=== PATIENT | male | born 1970 | race Caucasian/White ===

== ENCOUNTER 2016-08-31 21:47 | Observation (INO) | payer BC ==
[2016-08-31 22:33] LABS: Hematocrit 38.6 % (42.0-52.0); Hemoglobin 13.9 gm/dL (13.5-18.0); Mean Cell Volume 98.7 fl (78-100); Mean Corpuscular Hemoglobin 35.5 pg (27-31); Mean Platelet Volume 8.5 fl (6.0-9.5); Neutrophil # 12.4 K/mm3 (1.3-6.0); Neutrophil % 73.3 % (42-75.0); Platelet Count 100 K/mm3 (150-450); Red Blood Count 3.91 M/mm3 (4.7-6.0); Red Cell Distribution Width 14.6 % (11.5-14.0)
[2016-08-31 22:34] LABS: Total Cells Counted 100
--- NOTE | 2016-08-31 22:36 | ERNOTE ---
Medical Problem HPI - General Chief Complaint: General Assessment Time Seen by Provider: 08/31/16 22:27 Source: family Exam Limitations: clinical condition - Immun/Allergies/Home Medications Immunizations: IMMUNIZATION HX Immunizations Up to Date Yes History of Influenza Vaccine No Hx Pneumococcal Vaccination No Allergies/Adverse Reactions: Allergies No Known Allergies Allergy (Verified 08/31/16 23:02) Home Medications: HOME MEDICATIONS Multivitamin [Poly-Vitamin] 1 each PO DAILY 08/03/15 [Last Taken Unknown] Folic Acid 1 mg PO DAILY #30 tablet 08/05/15 [Last Taken Unknown] Levothyroxine Sodium [Synthroid] 88 mcg PO DAILY@0700 #30 tablet 08/05/15 [Last Taken Unknown] Magnesium Oxide [Mag-Ox 400] 400 mg PO QID #120 tablet 08/05/15 [Last Taken Unknown] Thiamine HCl [Vitamin B-1] 100 mg PO DAILY #30 tablet 08/05/15 [Last Taken Unknown] Famotidine [Pepcid AC] 20 mg PO DAILY 08/31/16 [Last Taken Unknown] Furosemide [Lasix] 20 mg PO Q48H 08/31/16 [Last Taken Unknown] Lactulose [Enulose] 45 ml PO BID 08/31/16 [Last Taken Unknown] - History of Present History Narrative: Parents found pt confused, has cirrhosis of the liver and may not have taken his meds today. Was tired last night when he talked to his dad on the phone but otherwise sounded normal. Today father went to check on him and found him nearly unresponsive Timing: getting worse Severity: moderate Review of Systems - Narrative Narrative: Pt does not give clear answers, mumbles and incoherent speech. - Patient's Past Medical History Patient History - Medical: Liver Disease Patient History - Cardiac/Respiratory: No pertinent hx Patient History - Cancer: No Hx of Cancer Patient History - Surgical Procedures: T & A Patient History - Other: None - Family History Brother Family History - Medical: Hypothyroidism mom Family History - Medical: Hypothyroidism dad Family History - Medical: GERD Family History - Cardiac/Respiratory: Hypertension, Hyperlipidemia - Social History Living Situations: home Abuse History: Hx of Substance Use Psych History: No pertinent hx Smoking Status: Former smoker Alcohol Use: sober Drug Use: none - Immunizations Immunizations Up to Date: Yes Hx Pneumococcal Vaccination: No History of Influenza Vaccine: No Physical Exam - Physical Exam General Appearance: Present: wd/wn, lethargic Eye Exam: Other: bilateral - Unablel to get patient to open his eyes for me due to his confusion Ears, Nose, Throat: Present: normal ENT inspection Neck: Present: normal inspection, nontender Respiratory: Present: no respiratory distress, normal breath sounds, no accessory muscle use, chest nontender, lungs clear Cardiovascular/Chest: Present: regular rate, rhythm, no murmur, normal peripheral pulses Gastrointestinal/Abdominal: Present: nontender, nondistended, soft Male Genitals Exam: Present: normal genitalia Back Exam: Present: normal inspection, normal range of motion Extremity Exam: Present: normal inspection, normal range of motion, no edema Neurological Exam: Present: no motor/sensory deficits, disoriented to person, disoriented to time, disoriented to place, disoriented to situation Skin Exam: Present: normal color, warm/dry Lymphatic Exam: Present: no adenopathy ED Progress - Results and Orders Patient's Lab Results:: I have reviewed the patient's lab results. Results and Orders: Laboratory Tests 08/31/16 08/31/16 08/31/16 22:12 22:12 22:12 WBC 17.0 H Hgb 13.9 Hct 38.6 L Plt Count 100 L Sodium 146 H Potassium 4.1 Chloride 109 H Carbon Dioxide 19.7 L Anion Gap 21.4 H BUN 25 H D Creatinine 1.18 Est GFR (Non-Af Amer) 71 Random Glucose 117 H Calcium 9.5 Total Bilirubin 1.9 H AST 207 H ALT 67 Alkaline Phosphatase 166 Ammonia 61.0 H Total Protein 7.9 Albumin 3.8 - Vital Signs Patient's Vital Signs:: I have reviewed the patient's vital signs. Vital Signs: Vital Signs 08/31/16 21:55 Temperature 37.2 C Pulse Rate 117 H Respiratory 16 Rate Blood Pressure 155/79 O2 Sat by Pulse 98 Oximetry - Progress/Reassessment Chief Complaint: General Assessment Progress:: Unchanged Progress Note-Subjective: 09/01/16 00:59 spoke with Neisha SHELTON hospitalist, she agrees to admit the patient 09/01/16 02:21 Around 01:45 pt began to be very agitated and tried to crawl out of bed. Pt was not coherent nor stable on his feet. We encouraged pt back into the bed but he continued to be restless and tried to get back up and was trying to hit and bite the staff. Pt was physically restrained by staff at this point and given 1 mg ativan IV. The IV began leaking immediately after the ativan was given and we could not confirm if he received the ativan or not. Pt was wanting to urinate but we could not get him to understand that we had a urinal at the ready and he could just urinate. 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 I eventually was able to get his fingers open and he did urinate a small amount on the floor but then quickly stopped. The patient settled down after approx 7-10 minutes after we attempted to give ativan we could not be sure if it was effects of getting ativan or not. Pt was taken to the SCU by ER staff and was somewhat restless but not agitated. Departure - Departure Clinical Impression: Hepatic encephalopathy Cirrhosis of liver Qualifiers: Hepatic cirrhosis type: unspecified biliary cirrhosis Qualified Code(s): K74.5 - Biliary cirrhosis, unspecified Disposition: [facility] Condition: Serious
--- OUTSIDE RECORDS SUMMARY | 2016-08-31 22:38 | XMS REPORT | Continuity of Care Document ---
:1970 Author Organization [facility] ([facility]) Address [address] [place] [address] Phone [phone] Care Team Providers Name Role Phone Vesta Martinez Primary Care Provider [phone] Source Comments This disclosure is being made pursuant to the Care Everywhere program, applicable federal and state laws, and may not contain all informaitonavailable regarding this patient.[facility] ([facility]) Active Allergies and Adverse Reactions No Known Allergies Current Medications Prescription Sig. Disp. Refills Start Date End Date Status folic acid 1 mg Take 1 mg by Active tablet mouth daily. levothyroxine 88 mcg Take 88 mcg by Active tablet mouth every morning before breakfast. famotidine 20 mg Take 1 tablet 60 tablet 11 09/09/2015 Active tablet (20 mg total) by mouth 2 times daily. magnesium oxide 400 Take 1 tablet 30 tablet 11 09/09/2015 Active mg tablet (400 mg total) by mouth daily. lactulose 10 g/15 mL Take 45 mL (30 946 mL 11 02/03/2016 Active solution g total) by mouth 2 times daily. Titrate dose to 2-3 bowel movements per day. cyanocobalamin Take 1 tablet Active (VITAMIN B-12) PO by mouth daily. spironolactone 50 mg Take 1 tablet 30 tablet 3 02/18/2016 Active tablet (50 mg total) by mouth daily. ciprofloxacin HCl Take 1 tablet 30 tablet 11 08/21/2015 Discontinued 500 mg tablet (500 mg total) 7 by mouth daily. POTASSIUM Take 90 mg by Discontinued (POTASSIMIN PO) mouth daily. 7 furosemide 20 mg Take 1 tablet 30 tablet 2 03/04/2016 Discontinued tablet (20 mg total) 7 by mouth every 48 hours. Active Problems Problem Noted Date Alcoholic cirrhosis of liver without ascites 06/20/2016 Anasarca 03/03/2016 S/P TIPS (transjugular intrahepatic portosystemic shunt) 02/03/2016 Alcoholic cirrhosis of liver with ascites 02/02/2016 Delirium 09/08/2015 Hepatic encephalopathy 09/03/2015 MARIE (acute kidney injury) 09/03/2015 Decompensated hepatic cirrhosis 09/03/2015 Lethargy 09/01/2015 Alcohol abuse 08/21/2015 Thrombocytopenia 08/21/2015 Hypothyroidism 08/19/2015 Cirrhosis 08/18/2015 Ascites 08/18/2015 Most Recent Encounters Date Type Specialty Providers Description 08/12/2016 Committee Review Transplant Angelica Graff, CIARRA ADAN 08/11/2016 Telephone Transplant Elis Cabrera Chief Comp: Follow-up CIARRA Frank 08/10/2016 Office Visit Med GI/Hepatology Default, Other Chief Comp: Patient Billg - Defo Reported Reason For Dianna Rosario Visit MD 08/10/2016 Office Visit Med GI/Hepatology Default, Other Dx: Alcoholic Billg - Defo cirrhosis of liver Mazin Butler, without ascites (Primary Dx) Dianna Rosario MD 07/28/2016 Office Visit Radiology Sg Marie Dx: S/P STELLA Sutherland MD (transjugular intrahepatic portosystemic shunt) (Primary Dx) 07/28/2016 [facility] [place] Chief Comp: Patient Donna Byrne MD Reported Reason For Visit 07/25/2016 Telephone Surgery Specialty Juana Jeronimo Chief Comp: Other 07/18/2016 Telephone Transplant Juana Jeronimo Chief Comp: Other EDUAR/MITCH 07/18/2016 Orders Only Transplant Brooks Chatterjee Dx: Alcohol abuse CIARRA Grier MD (Primary Dx) 07/07/2016 Telephone Transplant Juana Jeronimo Chief Comp: Other TOMASZ/CLAU 07/07/2016 Orders Only Transplant Brooks Chatterjee Dx: Alcohol abuse CIARRA Grier MD (Primary Dx) 06/28/2016 Office Visit Transplant Tashia Cordova Dx: Substance use CIARRA PHD disorder (Primary Dx) 06/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 Telephone Transplant Juana Jeronimo 06/23/2016 Refill Med GI/Hepatology Kell Graff Dx: Other ascites (Primary Dx) 06/20/2016 Telephone Transplant Juana Jeronimo Chief Comp: Other CIARRA 06/17/2016 Telephone Transplant Juana Jeronimo 06/17/2016 Orders Only Transplant KandaceJuana 06/17/2016 Orders Only Transplant Brooks Chatterjee Dx: Alcohol abuse CIARRA Grier MD (Primary Dx) 06/16/2016 Committee Review Transplant Angelica Graff, CIARRA ADAN 06/09/2016 Telephone Transplant Juana Jeronimo Chief Comp: Other CIARRA 06/09/2016 Orders Only Transplant Karan Sarmiento, Dx: Alcohol abuse CAIRRA MAYER (Primary Dx) Immunizations Name Dates Previously Given Next Due Hepatitis A, adult 06/21/2016 Hepatitis B, adult 06/21/2016 Pneumococcal Conjugate, PCV13 (Prevnar 13) 06/21/2016 Pneumococcal Polysaccharide, PPSV23 (Pneumovax 23) 02/03/2016 Tdap 06/21/2016 Social History Tobacco Use Types Packs/Day Years Used Date Former Smoker Cigarettes 1 20 Quit: 08/15/2015 Smokeless Tobacco: Never Used Tobacco Cessation:Counseling Given: Yes Comments: Alcohol Use Drinks/Week oz/Week Comments No 0 Standard drinks or equivalent 0.0 Previous alcoholic (12pack/night) and fifth of liquor a week for 2 years. Last drink was 07/27/15. Last Filed Vital Signs Vital Sign Reading Time Taken Blood Pressure 151/82 08/10/2016 2:02 PM [employer]AL [employer] Pulse 74 08/10/2016 2:02 PM [employer] Temperature 37.3 C (99.1 F) 08/10/2016 2:02 PM [employer] Respiratory Rate 20 07/28/2016 1:51 PM [employer] Height 1.778 m (5' 10") 08/10/2016 2:02 PM [employer] Weight 98.8 kg (217 lb 13 oz) 08/10/2016 2:02 PM [employer] Body Mass Index 31.25 08/10/2016 2:02 PM [employer] Oxygen Saturation 100% 03/04/2016 10:07 AM CDT Plan of Care Date Type Specialty Providers Description 10/26/2016 Appointment Radiology Chief Comp: Patient Reported Reason For Visit Health Maintenance Due Date Last Done Comments Lipid Disorder Screening 12/27/1989 MMR Vaccine 12/27/1989 Influenza Vaccine: Seasonal (#1) 01/11/2016 Hepatitis B Vaccine (2 of 3 - Primary 07/19/2016 06/21/2016 Series) Td Vaccine 06/21/2026 06/21/2016 Pneumococcal Vaccine Completed 06/21/2016, 02/03/2016 Tdap Vaccine Completed 06/21/2016 Results from Last 3 Months ALPHA-FETOPROTEIN (08/10/2016 1:57 PM) Component Value Range AFP 4.1 0.0-9.0 ng/mL Specimen Blood PT/INR (PROTHROMBIN TIME/INR) VENOUS (08/10/2016 1:57 PM) Component Value Range PT (Prothrombin Time) 12 9-12 secs INR 1.2 <4.0 Specimen Blood BASIC METABOLIC PANEL W/ CALCIUM (CHEM 8) (08/10/2016 1:57 PM) Component Value Range Sodium 141 135-145 mEq/L Potassium 4.0 3.5-5.0 mEq/L Chloride 105 95-107 mEq/L CO2 24 22-29 mEq/L Anion Gap 12 8-18 mEq/L BUN 18 10-20 mg/dL Creatinine 1.0Comment: 0.6-1.2 mg/dL Creatinine switched to enzymatic method on 10/19/2010.GFR equation switched to IDMS-traceable MDRD equation on 10/19/2010. Calculated GFR values are not valid in clinical settings where serum creatinine is changing. Glucose 109(H)Comment: 65-99 mg/dL The Expert Committee on the Diagnosis and Classification of Diabetes has defined impaired fasting glucose as greater than or equal to 100 mg/dL but less than 126 mg/dL.(Diabetes Care 28 (Suppl 1)S41,2005) Calcium 9.1 8.5-10.5 mg/dL Calculated GFR 81 >60 mL/min/1.73 m2 Specimen Blood CBC (COMPLETE BLOOD COUNT) (08/10/2016 1:57 PM) Component Value Range WBC Count 8.0 3.7-10.5 K/MM3 RBC Count 3.33(L) 4.50-6.20 M/MM3 Hemoglobin 11.7(L) 13.2-17.7 g/dL Hematocrit 32(L) 40-52 % MCV (Mean Corpuscular Volume) 96 82-99 FL MCH (Mean Corpuscular Hemoglobin) 35 25-35 PG MCHC (Mean Corpuscular Hemoglobin Concentration) 36 32-36 % Platelet Count 92(L) 150-400 K/MM3 MPV (Mean Platelet Volume) 8.4(L) 9.4-12.3 FL RBC Dist Width-STD 50.4(H) 35.1-43.9 FL RBC Distrib Width 14.4 9.0-14.5 % Nucleated RBC 0 /100 WBC Specimen Whole Blood HEPATIC FUNCTION PANEL (08/10/2016 1:57 PM) Component Value Range Albumin 3.7 3.4-4.8 g/dL ALP 147(H) 40-129 U/L Bilirubin Total 1.2 <=1.2 mg/dL Bilirubin, Direct 0.3(H) 0.0-0.2 mg/dL AST 44(H)Comment: 0-40 U/L Adult reference ranges updated on 05/07/13 at 830am ALT 26Comment: 0-41 U/L The upper limit of normal for alanine aminotransferase (ALT) reference ranges for adults is controversial with some authorities recommending limit as low as 30 U/L for males and 19 U/L for females. Th ere is increased incidence of subclinical liver disease (e.g., early steatohepatitis) in patients with ALT values in the range of 31-41 U/L for males and 20-33 U/L for females. ALT values should alway s be interpreted in conjunction with clinical history, physical examination findings, and, if applicable, data from other diagnostic tests. Total Protein 7.0 6.0-8.0 g/dL Specimen Blood US TRISTIN/SYSTEMIC SHUNT DOPP (73017) (07/28/2016 1:38 PM) Impressions Impression: 1. Patent normally functioning TIPS. 2. Diffuse fibrofatty infiltration of the liver. No focal lesions. 3. No splenomegaly. No ascites. --- Final --- Narrative [facility] Department of Radiology Ultrasound Division [address] [place] [address] ULTRASOUND REPORT NAME:MONY KENNEDY Date of Service: 07/28/2016 MRN NO.: [id number] Review Date: 07/28/2016 Patient's : 1970Resident/Tech: [email or web address] Anu Talavera Patient's Age: 45 years Referring MD:SG MARIE Indication: please assess TIPS patency, TIPS completed on 02.02.16 Cirrhosis of liver with ascites, unspecified hepatic cirrhosis type [K74.60]. Technique: Grayscale limited abdominal ultrasound with spectral Doppler analysis of the TIPS shunt. Findings: Liver: The liver shows changes consistent with cirrhosis. Liver measures 14.8 cm in length. There is no ascites. +---------+---------+ + +---------+ +------+------ + : MPV : Caudal: Mid: Cephalic : HV:RPV: LPV:UV : +---------+---------+ + +---------+ +------+------ + :31.0 cm/s:88.0 cm/s:135.0 cm/s:118.0 cm/s:97.0 cm/s:Hepatofugal:To-Fro:Absent: +---------+---------+ + +---------+ +------+------ + Spleen: Spleen measures 12.8 cm. Procedure Note Ousmane, Incoming Imaging Results - Marleen Jul 28, 2016 2:52 PM [employer] [employer] Department of Radiology Ultrasound Division [address] [place] [address] ULTRASOUND REPORT NAME: MONY KENNEDY Date of Service: 07/28/2016 MRN NO.: [id number] Review Date: 07/28/2016 Patient's : 1970 Resident/Tech: wShaun Talavera Patient's Age: 45 years Referring MD: SG T LAROIA Indication: please assess TIPS patency, TIPS completed on 02.02.16 Cirrhosis of liver with ascites, unspecified hepatic cirrhosis type[K74.60]. Technique: Grayscale limited abdominal ultrasound with spectral Doppler analysis of the TIPS shunt. Findings: Liver: The liver shows changes consistent with cirrhosis. Liver measures 14.8 cmin length. There is no ascites. +---------+---------+ + +---------+ +------+------ + : MPV : Caudal : Mid : Cephalic : HV : RPV : LPV :UV : +---------+---------+ + +---------+ +------+------ + :31.0 cm/s:88.0 cm/s:135.0 cm/s:118.0 cm/s:97.0 cm/s:Hepatofugal:To-Fro:Absent: +---------+---------+ + +---------+ +------+------ + Spleen: Spleen measures 12.8 cm. IMPRESSION Impression: 1. Patent normally functioning TIPS. 2. Diffuse fibrofatty infiltration of the liver. No focal lesions. 3. No splenomegaly. No ascites. --- Final --- EXTERNAL THC-URINE (07/18/2016)Only the most recent of4 resultswithin the time period is included. Component Value Range Ext THC, Urine Neg NEG EXTERNAL ETHYL GLUCURONIDE SCREEN,URINE (07/18/2016)Only the most recent of4 resultswithin the time period is included. Component Value Range Ext Ethyl Glucuronide Screen, Urine Neg EXTERNAL DRUGS OF ABUSE - URINE (07/18/2016)Only the most recent of4 resultswithin the time period is included. Component Value Range Ext Amphetamines, Urine Neg NEG Ext Barbiturates, Urine Neg NEG Ext Benzodiazepine, Urine Neg NEG Ext Cocaine, Urine Neg NEG Ext Opiate, Urine Neg NEG Ext THC, Urine Neg NEG
[2016-08-31 22:46] LABS: Albumin * 3.8 gm/dl (3.4-5.0); Anion Gap 21.4 mmol/L (6.8-13.8); BUN/Creatinine Ratio 21.2 (9.0-21.6); Bilirubin, Total 1.9 mg/dL (0.0-1.1); Ca. Corrected For Albumin 9.3 mg/dL (8.4-10.2); Calcium * 9.5 mg/dL (7.9-10.9); Carbon Dioxide 19.7 mmol/L (24-32.6); Potassium 4.1 mmol/L (3.4-4.6); Total Protein 7.9 gm/dL (6.2-8.2)
[2016-08-31 22:56] LABS: Band 3 % (0-2.0); Eosinophil 2 % (0-3); Lymphocyte 10 % (20-51); Monocyte 9 % (0-9); Neutrophil 76 % (42-75); Neutrophil # 12.9 K/mm3 (1.3-6.0); Platelet Estimate Decreased (NORMAL); RBC Morphology Normal (NORMAL)
[2016-09-01] MEDS ORDERED: NORMAL SALINE 1,000 ML IV ONE (00:19)
--- OUTSIDE RECORDS SUMMARY | 2016-09-01 01:10 | XMS REPORT | Continuity of Care Document ---
:1970 Author Organization [facility] ([facility]) Address [address] [place] [address] Phone [phone] Care Team Providers Name Role Phone Vesta Martinez Primary Care Provider [phone] Source Comments This disclosure is being made pursuant to the Care Everywhere program, applicable federal and state laws, and may not contain all informaitonavailable regarding this patient.[facility] ([facility]) Active Allergies and Adverse Reactions No [...] shunt) (Primary Dx) 07/28/2016 [facility] [place] Chief Comp: Patient Donna Byrne MD Reported [...] Only Transplant Karan Sarmiento, Dx: Alcohol abuse CIARRA MAYER (Primary Dx) Immunizations Name Dates Previously [...] Taken Blood Pressure 151/82 08/10/2016 2:02 PM 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 Patent normally functioning TIPS. 2. Diffuse fibrofatty infiltration of the liver. No focal lesions. 3. No splenomegaly. No ascites. --- Final --- Narrative [facility] Department of Radiology Ultrasound Division [address] [place] [address] ULTRASOUND REPORT NAME:MONY KENNEDY Date of Service: 07/28/2016 MRN NO.: [id number] Review Date: 07/28/2016 Patient's : 1970Resident/Tech: [email or web address] [...] - Marleen Jul 28, 2016 2:52 PM W[employer] SYSTEM[employer] ENGINEER [facility] Department of Radiology Ultrasound Division [place] [address] ULTRASOUND REPORT NAME: MONY KENNEDY Date of Service: 07/28/2016 MRN NO.: [id number] Review Date: 07/28/2016 Patient's : 1970 Resident/Tech: [...]
[2016-09-01] MEDS ORDERED: LORazepam 2 MG/ML DISP.SYRIN IV ONE (01:53)
[2016-09-01] MEDS ORDERED: LORazepam 2 MG/ML DISP.SYRIN ONE (01:53)
[2016-09-01] MEDS ORDERED: FUROSEMIDE 20 MG TABLET PO SCH (03:15)
[2016-09-01] MEDS ORDERED: LACTULOSE 10 G/15 ML BTL PO SCH ×2 (03:15→09:00)
--- NOTE | 2016-09-01 03:23 | HP ---
Chief Complaint - Chief Complaint Date of Service: 09/01/16 Time of Service: 03:18 Chief Complaint: ' Confusion, not making sense in words'. Source of HPI- Pt; unreliable due to AMS. ER provider report, pt's mother, Shabnam. History of Present Illness: Mr. Kennedy is a 45-year-old WM pt of Dr. Vesta Martinez with a PMH of: Alcoholism, Alcoholic Cirrhosis of the Liver with Ascites, Anxiety disorder. History of illness is unobtainable from the patient due to cognitive function impairment. I reached the patient's mother, Shabnam by phone and she provided most of the information. She states that patient has been doing well since 05/2016 with his alcoholism. He has been following up with the farm equipment mechanic apprentice at the [facility] and states that he has been compliant with the treatment regiment for his alcoholic hepatitis & Liver cirrhosis. She states that the doctor was pleased with his improvement with alcoholism and that he would not need liver transplant. Shabnam states that the patient has been able to keep his employment for the last 2 years. They always call on check on him every night. The night before, the patient complained of feeling tired. He was supposed to file for taxes with the help of his parents today. However, he did not show up. They tried to call him numerous times and he could not answer. Both parents drove over to his house. They found him wandering naked in his home and he was not making any sense with his conversation. Shabnam states that they wanted to bring him to the Hospital and pt fought them, and refused to put on his clothes. They called the EMS to provide assistance, but by the time the arrived , they had been able to get him on to the personal car to bring him to the [facility] ER. Shabnam reports that she is uncertain if the pt has been taking his medication , more so the Lactulose. During evaluation at the ED, he became agitated, restless and kept trying to make numerous attempts to get out of bed. Pt remained incoherent and had unstable gait. He required IV Ativan to calm his aggressive behaviour. At the time of physical examination, he remains in a drowsy state. His lab work showed WBC of 17,000 on CBC and his ammonia level was 61. He will be admitted inpatient due to signs of Hepatic Encephalopathy. . - Patient's Past Medical History Patient History - Medical: Liver Disease, Other - Alcoholism, Alcoholic Cirrhosis of the Liver with Ascites, Anxiety disorder. Patient History - Cardiac/Respiratory: No pertinent hx Patient History - Cancer: No Hx of Cancer Patient History - Surgical Procedures: T & A Patient History - Other: None - Family History Brother Family History - Medical: Hypothyroidism mom Family History - Medical: Hypothyroidism dad Family History - Medical: GERD Family History - Cardiac/Respiratory: Hypertension, Hyperlipidemia - Social History Living Situations: home Abuse History: Hx of Substance Use Psych History: No pertinent hx Smoking Status: Former smoker Have you smoked in the past 12 months: No Alcohol Use: sober Drug Use: none - Immunizations Immunizations Up to Date: Yes Hx Pneumococcal Vaccination: No History of Influenza Vaccine: No Review Of Systems (GEN) - Review of Systems Additional Comments: ROS unobtainable due to AMS. Immunizations: IMMUNIZATION HX Immunizations Up to Date Yes History of Influenza Vaccine No Hx Pneumococcal Vaccination No Allergies/Adverse Reactions: Allergies Allergy/AdvReac Type Severity Reaction Status Date / Time No Known Allergies Allergy Verified 08/31/16 23:02 Home Medications: HOME MEDICATIONS Multivitamin [Poly-Vitamin] 1 each PO DAILY 08/03/15 [Last Taken Unknown] Folic Acid 1 mg PO DAILY #30 tablet 08/05/15 [Last Taken Unknown] Levothyroxine Sodium [Synthroid] 88 mcg PO DAILY@0700 #30 tablet 08/05/15 [Last Taken Unknown] Magnesium Oxide [Mag-Ox 400] 400 mg PO QID #120 tablet 08/05/15 [Last Taken Unknown] Thiamine HCl [Vitamin B-1] 100 mg PO DAILY #30 tablet 08/05/15 [Last Taken Unknown] Famotidine [Pepcid AC] 20 mg PO DAILY 08/31/16 [Last Taken Unknown] Furosemide [Lasix] 20 mg PO Q48H 08/31/16 [Last Taken Unknown] Lactulose [Enulose] 45 ml PO BID 08/31/16 [Last Taken Unknown] Exam - Exam Vital Signs: Vital Signs - Last Taken Temp 36.7 C 09/01/16 02:23 Pulse 108 H 09/01/16 03:08 Resp 20 09/01/16 02:23 BP 167/88 09/01/16 02:23 Pulse Ox 98 09/01/16 02:23 Constitutional: Present: No distress, Obtunded ENT Exam: Present: dry mucous membranes Eye Exam: bilateral eye: normal inspection, PERRL Neck: Present: full range of motion, supple, normal inspection Back Exam: Present: normal inspection Breasts: Present: Exam deferred Respiratory: Present: lungs clear, no accessory muscle use, No wheezing Cardiovascular/Chest: Present: normal peripheral pulses, regular rate, rhythm, no chest tenderness, no edema, no murmur Abdomen: Present: Normal bowel sounds, soft, nontender /Rectal: Present: Exam deferred Extremity: Present: normal range of motion, non-tender, normal inspection, no pedal edema Skin Exam: Present: warm/dry, no cyanosis Lymphatic: Present: no adenopathy Neurologic: Present: other - Drowsy Appearance: Present: impaired insight Eye contact: Present: uncooperative Thoughts: Present: incoherent Diagnostic Studies: Laboratory Results WBC 17.0 K/mm3 (4.0-10.5) H 08/31/16 22:12 RBC 3.91 M/mm3 (4.7-6.0) L 08/31/16 22:12 Hgb 13.9 gm/dL (13.5-18.0) 08/31/16 22:12 Hct 38.6 % (42.0-52.0) L 08/31/16 22:12 MCV 98.7 fl (78-100) 08/31/16 22:12 MCH 35.5 pg (27-31) H 08/31/16 22:12 MCHC 36.0 g/dl (32-36) 08/31/16 22:12 RDW 14.6 % (11.5-14.0) H 08/31/16 22:12 Plt Count 100 K/mm3 (150-450) L 08/31/16 22:12 MPV 8.5 fl (6.0-9.5) 08/31/16 22:12 Immature Gran % (Auto) 0.40 % (0.001-0.429) 08/31/16 22:12 Immature Gran # (Auto) 0.07 K/mm3 (0.000-0.0310) H 08/31/16 22:12 Neutrophils % 73.3 % (42-75.0) 08/31/16 22:12 Neutrophils % (Manual) 76 % (42-75) H 08/31/16 22:12 Band Neuts % (Manual) 3 % (0-2.0) H 08/31/16 22:12 Lymphocytes % 15.0 % (20-51) L 08/31/16 22:12 Lymphocytes % (Manual) 10 % (20-51) L 08/31/16 22:12 Monocytes % 10.6 % (0.0-9) H 08/31/16 22:12 Monocytes % (Manual) 9 % (0-9) 08/31/16 22:12 Eosinophils % 0.5 % (0.0-3.0) 08/31/16 22:12 Eosinophils % (Manual) 2 % (0-3) 08/31/16 22:12 Basophils % 0.2 % (0.0-1.0) 08/31/16 22:12 Nucleated RBC % 0.0 k/mm3 (0-1) 08/31/16 22:12 Neutrophils # 12.4 K/mm3 (1.3-6.0) H 08/31/16 22:12 Neutrophils # (Manual) 12.9 K/mm3 (1.3-6.0) H 08/31/16 22:12 Lymphocytes # 2.5 k/mm3 (1.5-3.5) 08/31/16 22:12 Lymphocytes # (Manual) 1.7 k/mm3 (1.5-3.5) 08/31/16 22:12 Monocytes # 1.8 k/mm3 (0.0-1.0) H 08/31/16 22:12 Monocytes # (Manual) 1.5 k/mm3 (0.0-1.0) H 08/31/16 22:12 Eosinophils # 0.1 k/mm3 (0.0-0.7) 08/31/16 22:12 Eosinophils # (Manual) 0.3 k/mm3 (0.0-0.7) 08/31/16 22:12 Absolute Basophils 0.0 k/mm3 (0.0-0.1) 08/31/16 22:12 Platelet Estimate Decreased (NORMAL) L 08/31/16 22:12 RBC Morphology Normal (NORMAL) 08/31/16 22:12 Sodium 146 mmol/L (132-142) H 08/31/16 22:12 Plasma Sodium 146 mmol/L (130-142) H 08/31/16 22:12 Potassium 4.1 mmol/L (3.4-4.6) 08/31/16 22:12 Chloride 109 mmol/L (97-106) H 08/31/16 22:12 Carbon Dioxide 19.7 mmol/L (24-32.6) L 08/31/16 22:12 Anion Gap 21.4 mmol/L (6.8-13.8) H 08/31/16 22:12 BUN 25 mg/dL (6-23) H D 08/31/16 22:12 Creatinine 1.18 mg/dL (0.4-1.4) 08/31/16 22:12 Est GFR (Non-Af Amer) 71 mL/min (60-130) 08/31/16 22:12 BUN/Creatinine Ratio 21.2 (9.0-21.6) 08/31/16 22:12 Random Glucose 117 mg/dL (70-110) H 08/31/16 22:12 Calcium 9.5 mg/dL (7.9-10.9) 08/31/16 22:12 Calcium Adj for Albumin 9.3 mg/dL (8.4-10.2) 08/31/16 22:12 Total Bilirubin 1.9 mg/dL (0.0-1.1) H 08/31/16 22:12 AST 207 U/L (0-48) H 08/31/16 22:12 ALT 67 U/L (19-67) 08/31/16 22:12 Alkaline Phosphatase 166 U/L (50-170) 08/31/16 22:12 Ammonia 61.0 mcmol/L (11-35) H 08/31/16 22:12 Total Protein 7.9 gm/dL (6.2-8.2) 08/31/16 22:12 Albumin 3.8 gm/dl (3.4-5.0) 08/31/16 22:12 Assessment/Plan - Assessment/Plan (1) Hepatic encephalopathy Assessment: Hepatic Encephalopathy suspected due to history of Livery cirrhosis and changes in mental status, mood, behaviour & elevated Ammonia level. No signs of Ascites. Has slight Jaundice. Need to evaluate, identify correct other precipitating factors of AMS such as: infection, use of sedatives, intoxication , constipation, electrolyte disturbance. Will need Lactulose 45 ml q 1 hour until defecation, then resume his home doses. 1.) Infection- Has a WBC of 17,000 and left shift. Will check Lactic acid, UA, Consider Abdominal X-ray. 2.) Intoxication- Etoh level within normal range. 3.) Use of sedatives- Will check urine drug screen. According to [place] records. Notes from [facility] show that he had psychological evaluation for organ transplant on 06/30/2016, but he has not completed the deferral requirements so that he can be listed on Transplant list. He had a positive drug screen for THC in May. 4.) Electrolyte imbalance- May be slighy dehrated with the Na of 146, Will provide IVF hydration. Problem: Acute (2) Leukocytosis Problem: Acute (3) Cirrhosis of liver Problem: Chronic Qualifiers: Hepatic cirrhosis type: unspecified biliary cirrhosis Qualified Code(s): K74.5 - Biliary cirrhosis, unspecified (4) Alcohol abuse Problem: Chronic (5) Alcoholic cirrhosis of liver without ascites Problem: Chronic
[2016-09-01 05:45] LABS: Cocaine Ur Negative (NEGATIVE); Urine Barbiturate Negative (NEGATIVE); Urine Benzodiazepines Negative (NEGATIVE); Urine Opiates Negative (NEGATIVE); Urine PCP Negative (NEGATIVE); Urine THC Negative (NEGATIVE)
[2016-09-01] MEDS ORDERED: NORMAL SALINE 1,000 ML IV PRN ×2 (05:59→10:01)
[2016-09-01 06:28] LABS: Hematocrit 33.1 % (42.0-52.0); Hemoglobin 12.3 gm/dL (13.5-18.0); Mean Cell Volume 98.2 fl (78-100); Mean Corpuscular Hemoglobin 36.5 pg (27-31); Mean Corpuscular Hgb Conc 37.2 g/dl (32-36); Mean Platelet Volume 8.4 fl (6.0-9.5); Neutrophil # 9.4 K/mm3 (1.3-6.0); Neutrophil % 65.7 % (42-75.0); Platelet Count 83 K/mm3 (150-450); Red Blood Count 3.37 M/mm3 (4.7-6.0); Red Cell Distribution Width 14.6 % (11.5-14.0); White Blood Count 14.4 K/mm3 (4.0-10.5)
[2016-09-01 06:48] LABS: Anion Gap 17.2 mmol/L (6.8-13.8); Calcium * 8.8 mg/dL (7.9-10.9); Carbon Dioxide 20.8 mmol/L (24-32.6)
[2016-09-01 07:00] LABS: BUN/Creatinine Ratio 29.5 (9.0-21.6); Estimated Creat Clear 108.9
[2016-09-01] MEDS ORDERED: LEVOTHYROXINE SODIUM 88 MCG TABLET PO SCH (07:00)
[2016-09-01] MEDS ORDERED: MULTIVITAMINS 1 CAP CAPSULE PO SCH (09:00)
[2016-09-01] MEDS ORDERED: FOLIC ACID 1 MG TABLET PO SCH (09:00)
[2016-09-01] MEDS ORDERED: FAMOTIDINE 20 MG TABLET PO SCH (09:00)
[2016-09-01] MEDS ORDERED: MAGNESIUM OXIDE 400 MG TABLET PO SCH (09:00)
[2016-09-01] MEDS ORDERED: THIAMINE HCL 100 MG TABLET PO SCH (09:00)
[2016-09-01] MEDS: LACTULOSE 10 G/15 ML BTL PO SCH ×2 (09:03→09:23)
[2016-09-01] MEDS ORDERED: FLU VACC QS2016-17 36MOS UP/PF 60 MCG/0.5 ML DISP.SYRIN IM ONE (10:00)
[2016-09-01] MEDS: MAGNESIUM OXIDE 400 MG TABLET PO SCH ×2 (12:50→16:24)
[2016-09-01] MEDS ORDERED: CALCIUM CARBONATE 500 MG TAB.CHEW PO PRN (16:13)
[2016-09-01 16:31] VITALS: BP 143/82
--- NOTE | 2016-09-01 17:12 | DS ---
(1) Hepatic encephalopathy Diagnosis(s): Leonardo is a 45 yo male that was admitted with hepatic encephalopathy with confusion and elevated ammonia. He was started on lactulose every hour. Shortly after taking his first dose of lactulose he had a large bowel movement and confusion resolved. Once the confusion resolved Leonardo admitted that he had not been taking his lactulose at home. He was educated never to miss a dose of his lactulose and with symptoms resolved he was discharged to home. Problem: Acute Procedures Performed: none Discharge Disposition: Home self care Disposition: Home self-care Condition: Fair Discharge Activity: Activity as tolerated Discharge Diet: General/regular food Referrals: Vesta Martinez MD [Primary Care Provider] - (PRN) Problem Oriented Discharge Instructions to Patient/Family: Hepatic Encephalopathy Complete Home Medications List: Complete Home Medication List: Multivitamin [Poly-Vitamin] 1 each PO DAILY 08/03/15 Folic Acid 1 mg PO DAILY #30 tablet 08/05/15 Levothyroxine Sodium [Synthroid] 88 mcg PO DAILY@0700 #30 tablet 08/05/15 Magnesium Oxide [Mag-Ox 400] 400 mg PO QID #120 tablet 08/05/15 Thiamine HCl [Vitamin B-1] 100 mg PO DAILY #30 tablet 08/05/15 Famotidine [Pepcid AC] 20 mg PO DAILY 08/31/16 Furosemide [Lasix] 20 mg PO Q48H 08/31/16 Lactulose [Enulose] 45 ml PO BID 08/31/16
[2016-09-01 21:02] LABS: Urine Bilirubin Negative (NEGATIVE); Urine Blood 250 /ul (NEGATIVE); Urine Ketone Negative (NEGATIVE); Urine Nitrite Negative (NEGATIVE); Urine Protein 30 mg/dL (NEGATIVE); Urine Specific Gravity 1.025 SP.GR. (1.005-1.030); Urine Urobilinogen Normal (NORMAL)
[2016-09-01 21:15] LABS: Urine Appearance Clear; Urine Bacteria None Seen; Urine Color Dark Yellow; Urine WBC 0-5 /hpf (0-5)
[2016-09-02] MEDS ORDERED: LEVOTHYROXINE SODIUM 88 MCG TABLET PO SCH (07:00)
[2016-09-02] MEDS ORDERED: MULTIVITAMINS 1 CAP CAPSULE PO SCH (09:00)
[2016-09-02] MEDS ORDERED: FOLIC ACID 1 MG TABLET PO SCH (09:00)
[2016-09-02] MEDS ORDERED: THIAMINE HCL 100 MG TABLET PO SCH (09:00)
[2016-09-02] MEDS ORDERED: FAMOTIDINE 20 MG TABLET PO SCH (09:00)
[2016-09-03] MEDS ORDERED: FUROSEMIDE 20 MG TABLET PO SCH (03:15)
== END 2016-09-01 17:30 | disposition home or self-care (01) ==
LOC: ER 21:47 → UNDOADMIN 09-01 01:05 → INTOOBSV 09-01 01:05 → SCU 09-01 01:05
PROVIDERS: ADMIT Nurse Practitioner; ATTEND Family Medicine
DX: K72.00 Acute and subacute hepatic failure without coma (principal); D72.829 Elevated white blood cell count, unspecified; K70.30 Alcoholic cirrhosis of liver without ascites; Z87.891 Personal history of nicotine dependence; R41.82 Altered mental status, unspecified; F10.188 Alcohol abuse with other alcohol-induced disorder
CPT/HCPCS: 36415; 71010; 80048; 80053; 80307; 80320; 81001; 82140; 83605; 84145; 85025; 87040; 96374; 99283; G0378